=== PATIENT | female | born 1980 | race African-American/Black ===

== ENCOUNTER 2017-03-06 16:15 | Emergency (ER) | payer OTHER ==
--- NOTE | 2017-03-06 16:21 | PDOC ---
Rapid Medical Evaluation Time Seen by Provider: 03/06/17 16:16 Medical Evaluation: Allergies Allergy/AdvReac Type Severity Reaction Status Date / Time No Known Drug Allergies Allergy Verified 03/21/16 13:32 aloe vera AdvReac Mild Rash Verified 03/21/16 13:32 03/06/17 16:20 I have performed a brief in-person evaluation of this patient. The patient presents with a chief complaint of: decreased sensation to left forearm for 5 days, no pain Pertinent physical exam findings: alert, ambulatory, stable I have ordered the following: urine pregancy The patient will proceed to the ED for further evaluation. Discharge Disposition - Diagnosis Arm paresthesia, left - Referrals - Patient Instructions - Post Discharge Activity
[2017-03-06 16:23] VITALS: BP 106/67; PULSE 75; TEMP 97.9; BMI 31.9
--- NOTE | 2017-03-06 17:12 | PDOC ---
History of Present Illness - General Chief Complaint: Pain Stated Complaint: NUMBNESS ON LT FOREARM Time Seen by Provider: 03/06/17 16:16 History Source: Patient Exam Limitations: No Limitations - History of Present Illness Initial Comments: 03/06/17 17:12 Chief complaint: Numbness of left forearm 5 days History of present illness: Patient is a 36-year-old female with a history of migraines here today complaining of tingling sensation in the left hand that radiates towards her left elbow worse at night. Patient denies any injury. Patient reports that this is been occurring for 5 days. 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 Patient holds her and her phone at times with her left hand. Patient did denies any decreased strength of her left hand or arm sagastume any coolness or redness or swelling of her hand or arm. Patient denies that area is painful. 03/06/17 17:28 Past History - Past Medical History Allergies/Adverse Reactions: Allergies Allergy/AdvReac Type Severity Reaction Status Date / Time No Known Drug Allergies Allergy Verified 03/06/17 16:23 aloe vera AdvReac Mild Rash Verified 03/06/17 16:23 Home Medications: Ambulatory Orders NK [No Known Home Medication] 03/06/17 Asthma: No Cancer: No Cardiac Disorders: No COPD: No Diabetes: No HTN: No Seizures: No Thyroid Disease: No - Suicide/Smoking/Psychosocial Hx Smoking History: Never smoked Have you smoked in the past 12 months: No Hx Alcohol Use: No Drug/Substance Use Hx: No Hx Substance Use Treatment: No Review of Systems - Review of Systems Constitutional: No: Symptoms Reported HEENTM: No: Symptoms Reported Respiratory: No: Symptoms reported Cardiac (ROS): No: Symptoms Reported ABD/GI: No: Symptoms Reported Musculoskeletal: No: Symptoms Reported Integumentary: No: Symptoms Reported Neurological: Yes: Tingling (left hand/wrist/forearm ) *Physical Exam - Vital Signs Last Vital Signs Temp Pulse Resp BP Pulse Ox 97.9 F 75 18 106/67 99 03/06/17 16:18 03/06/17 16:18 03/06/17 16:18 03/06/17 16:18 03/06/17 16:18 - Physical Exam General Appearance: Yes: Appropriately Dressed Respiratory/Chest: positive: Lungs Clear, Normal Breath Sounds. negative: Chest Tender, Respiratory Distress Cardiovascular: positive: Regular Rhythm, Regular Rate, S1, S2 Comments:: 03/06/17 17:34 radial pulse left 4 + Extremity: positive: Normal Capillary Refill, Normal Inspection, Normal Range of Motion (left hand/all digits/wrist and elbow). negative: Tender Integumentary: positive: Normal Color Neurologic: positive: Normal Response, Respond to painful stimul (left hand/ digits/wrist/forearm ), Responsive. negative: Numbness, Sensory Deficit (left hand/digits/forearm ) Medical Decision Making - Medical Decision Making 03/06/17 17:30 Patient is a 36-year-old female with a history of migraines here today complaining of tingling sensation in the left hand that radiates towards her left elbow worse at night. Patient denies any injury. Patient reports that this is been occurring for 5 days. 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 Patient holds her and her phone at times with her left hand. Patient did denies any decreased strength of her left hand or arm sagastume any coolness or redness or swelling of her hand or arm. Patient denies that area is painful. tingling left hand/forearm PLAN: wrist immoblizerer left follow up with ortho *DC/Admit/Observation/Transfer Diagnosis at time of Disposition: Arm paresthesia, left - Discharge Dispostion Disposition: HOME Condition at time of disposition: Stable - Referrals Referrals: Jazlyn Sosa [Primary Care Provider] - Antonio Sood MD [Staff Physician] - - Patient Instructions Additional Instructions: Follow-up with orthopedist as soon as possible for further evaluation Wear wrist splint during the day Return to emergency room if symptoms worsen or new symptoms develop Patient voiced understanding of discharge instructions and all questions were answered thank you for choosing [facility] emergency room for your medical needs today - Post Discharge Activity
== END 2017-03-06 17:36 | disposition home or self-care (01) ==
LOC: JERFT 16:15
DX: R20.2 Paresthesia of skin (principal)
CPT/HCPCS: 84703; 99281-25